=== PATIENT | male | born 1995 | race Caucasian/White ===

== ENCOUNTER 2022-03-17 06:40 | Day surgery (SDC) | payer BC ==
[~2022-03-17] VITALS: Ht 182.9 cm; Wt 72.4 kg
[2022-03-17] MEDS ORDERED: PROPECIA1 MG PO (06:43)
[2022-03-17] MEDS ORDERED: FLONASEALLERGY NS (06:43)
[2022-03-17] MEDS ORDERED: CLARITIN 1010 MG/TAB PO (06:43)
[2022-03-17] MEDS ORDERED: PRIL40 PO (06:44)
[2022-03-17 06:56] VITALS: BP 139/86; PULSE 76; TEMP 97.7
[2022-03-17 08:40] VITALS: BP 116/71; PULSE 95; TEMP 97.1
[2022-03-17 08:55] VITALS: BP 113/77; PULSE 84
[2022-03-17 09:10] VITALS: BP 121/81; PULSE 82
--- NOTE | 2022-03-17 10:06 | NUR ---
0840: Patient arrived back into [facility] from Endo procedure. Patient is drowsy but arousable to vocal stimulation. Vital signs stable on room air. Report received from JADA Fisher. Patient requesting orange juice and muffins. Patient denies pain and nausea. Call light left within reach. Girlfriend at bedside. 0855: Patient vitally stable. Tolerating food and drink well. Denies pain or nausea at this time. 0910: Patient able to void successfully. Meets discharge criteria. IV removed without complications. Went through discharge instructions with patient and girlfriend. Patient got dressed. Escorted to patient entrance via wheelchair. Patient left in the care of his girlfriend, Adonis.
== END 2022-03-17 09:15 | disposition home or self-care (01) ==
LOC: SDCO 06:40
DX: K64.1 Second degree hemorrhoids (principal); Z80.0 Family history of malignant neoplasm of digestive organs
CPT/HCPCS: J2704; J7030